=== PATIENT | male | born 1940 | race Caucasian/White ===

== ENCOUNTER 2020-02-28 17:36 | Emergency (ER) | payer OTHER ==
[2020-02-28] MEDS ORDERED: HYDROmorphone 1 MG/ML Syringe IM ONE (17:54)
--- NOTE | 2020-02-28 18:00 | EDM.PDOC ---
ED HPI GENERAL MEDICAL PROBLEM - General Chief Complaint: Lower Extremity Injury/Pain Stated Complaint: L LEG PAIN Time Seen by Provider: 02/28/20 17:44 Source of Information: Reports: Patient History Limitations: Reports: No Limitations - History of Present Illness INITIAL COMMENTS - FREE TEXT/NARRATIVE: The patient presents with left leg pain. 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 He is here visiting his son and he had a flare up of pain yesterday and he had to use more of his pain meds to control the pain. He is nearly out of his hydrocodone. He did not injure his leg again. He thinks it was from the long drive up. He has no other symptoms such as fever, chills, cough, congestion, chest pain, or shortness of breath. Onset: Gradual Duration: Day(s): Location: Reports: Lower Extremity, Left Quality: Reports: Sharp Severity: Severe Improves with: Reports: None Worsens with: Reports: None Associated Symptoms: Reports: No Other Symptoms - Related Data Allergies Allergy/AdvReac Type Severity Reaction Status Date / Time aspirin Allergy Hives Verified 02/28/20 17:53 Home Meds: Home Meds Hydrocodone/Acetaminophen [Hydrocodone-Acetamin 5-325 mg] 1 - 2 each PO Q6HR PRN #20 tablet 02/28/20 [Rx] Review of Systems - Review of Systems Review Of Systems: See Below Constitutional: Reports: No Symptoms Eyes: Reports: No Symptoms Ears: Reports: No Symptoms Nose: Reports: No Symptoms Mouth/Throat: Reports: No Symptoms Respiratory: Reports: No Symptoms Cardiovascular: Reports: No Symptoms GI/Abdominal: Reports: No Symptoms Genitourinary: Reports: No Symptoms Musculoskeletal: Reports: Other (Left leg pain) ED EXAM, GENERAL - Physical Exam Exam: See Below Exam Limited By: No Limitations General Appearance: Alert, No Apparent Distress Ears: Normal External Exam Nose: Normal Inspection Head: Atraumatic, Normocephalic Neck: Normal Inspection Respiratory/Chest: No Respiratory Distress, Lungs Clear, Normal Breath Sounds Cardiovascular: Regular Rate, Rhythm, No Edema, No Murmur Extremities: Other (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 Departure - Departure Time of Disposition: 18:00 Disposition: Home, Self-Care 01 Condition: Good Clinical Impression: Left leg pain - Discharge Information *PRESCRIPTION DRUG MONITORING PROGRAM REVIEWED*: Not Applicable *COPY OF PRESCRIPTION DRUG MONITORING REPORT IN PATIENT SANJAY: Not Applicable Prescriptions: Hydrocodone/Acetaminophen [Hydrocodone-Acetamin 5-325 mg] 1 - 2 each PO Q6HR PRN #20 tablet PRN Reason: Pain Referrals: PCP,Not In Area [Primary Care Provider] - Additional Instructions: Take the medication as needed. Please return if you are worse. Sepsis Event Note (ED) - Evaluation Sepsis Screening Result: No Definite Risk - Focused Exam Vital Signs: Vital Signs Temp Pulse Resp BP Pulse Ox 02/28/20 17:45 98.9 F 93 18 166/96 H 95 - My Orders Last 24 Hours: My Active Orders 02/28/20 17:54 HYDROmorphone [Dilaudid] 1 mg IM ONETIME ONE - Assessment/Plan Last 24 Hours: My Active Orders 02/28/20 17:54 HYDROmorphone [Dilaudid] 1 mg IM ONETIME ONE
== END 2020-02-28 18:07 | disposition home or self-care (01) ==
LOC: JD.ED 17:36
DX: M79.605 Pain in left leg (principal); Z89.619 Acquired absence of unspecified leg above knee; Z88.8 Allergy status to other drugs, medicaments and biological substances
CPT/HCPCS: 96372; 99283; J1170